=== PATIENT | male | born 1955 | race Caucasian/White ===

== ENCOUNTER 2018-05-14 07:32 | Observation (INO) | payer BC, OTHER ==
[~2018-05-14] VITALS: Ht 182.9 cm; Wt 106.4 kg
[2018-05-14] VITALS (11 sets, daily range): BP systolic 124–156; BP diastolic 82–100
--- NOTE | ~2018-05-14 | D ---
[facility] [place] [address] DISCHARGE SUMMARY Name: KELSEY AVITIA Room #: 210-P [facility] M.R.#: [id number] Admission: 05/14/18 ������������������ Attend Phys: Rene Moscoso MD, Discharge: ������������������ Date of : 57 Report #: [id number] THIS REPORT FOR: //name// CC: FAM unknown Rene Ward MD DATE OF SERVICE: 05/15/2018 SUBJECTIVE: This is a 62-year-old male who is admitted for cardiac catheterization after being evaluated in the office for what appeared to be possible prior inferior infarct of limited nature and some questionable anginal symptoms. Subsequently taken to the Catheterization Lab. The left main, LAD, circumflex were mildly diseased. The dominant right coronary artery had high grade subtotal proximal lesion. It appears that this may have been open and closed, but it was patent; however, closed even with the placement of a wire prior to the balloon angioplasty. This was then successfully stented with a 2.75 x 18 [place] Resolute drug-eluting stent. This was postdilated to 3.0 mm. He tolerated this well. Effient (prasugrel load) with aspirin for dual antiplatelet therapy to be continued. The amlodipine will be 5 mg, losartan will be 25 mg and metoprolol 25 mg are discharge medications with the full aspirin for 1 month, decreasing to a baby aspirin after 30 days and continuing prasugrel, so dual antiplatelet therapy at least 1 year. DISCHARGE DIAGNOSES: 1. Coronary artery disease, successful PTCA stent. 2. Mild ischemic cardiomyopathy, which essentially has resolved. There is very small area of inferior basilar hypokinesis, ejection fraction 55%. 3. Hypertension. 4. Hypercholesterolemia. 5. Strong family history of premature coronary artery disease. 6. Tobacco use. Tobacco cessation strongly recommended. He is planning on stopping. He has been cutting down significantly. Followup is scheduled in 3 months in our office. No MRI or dental work for 3 months. No lifting or tub or Jacuzzi for 1 week. Thank you for asking me to assist in the care of this patient. ��������������������������������������������� ���������������������������������������� By: ��������������������������������������������� [id number] 0909 Rene Moscoso MD, FACC /nt
[2018-05-14 08:01] LABS: HEMATOCRIT 45.7 % (42.0-52.0); HEMOGLOBIN 15.6 gm/dL (14.0-18.0); MCH 32.7 pg (26.0-34.0); MCV 96.2 fL (80.0-100.0); RBC 4.75 mil/uL (4.50-6.00); RDW 14.1 % (10.5-14.5)
[2018-05-14] MEDS ORDERED: ZYLOPRIM300 MG PO (08:02)
[2018-05-14] MEDS ORDERED: ASPIR 8181 MG PO (08:02)
[2018-05-14] MEDS ORDERED: COZAAR 25 MG TA25 M1 PO (08:03)
[2018-05-14] MEDS ORDERED: AMLODIPINE BESY10 MG PO (08:03)
[2018-05-14] MEDS ORDERED: METFORMIN HCL500 MG PO (08:04)
[2018-05-14] MEDS ORDERED: CRESTOR20 MG PO (08:05)
[2018-05-14 08:16] LABS: CALCIUM 8.9 mg/dL (8.5-10.1); CREATININE 1.1 mg/dL (0.7-1.3); POTASSIUM 4.4 mmol/L (3.5-5.1)
--- NOTE | 2018-05-14 11:17 | NUR ---
PT ADMITTED FROM [facility] POST STENT PLACEMENT. ALERT AND ORIENTED X4. DENIES PAIN AND SOA. PT PLACED ON TELE AND VITAL MONITORING PER POST CATH PROTOCOL. VSS. RIGHT GROIN POST CATH SITE C/D/I. FAMILY AT BEDSIDE. PT DOES NOT WANT TO EAT AT THIS TIME. ADMISSION EDUCATION COMPLETED. POST CATH INSTRUCTIONS GIVEN. PT DENIES QUESTIONS OR CONCERNS REGARDING THE FOREMENTIONED OR POC.
--- NOTE | 2018-05-14 17:34 | NUR ---
PT COMPLETED POST CATH PROTOCOL WITHOUT ISSUE. BP BECAME SLIGHTLY ELEVATED. CV WRAPPER OFF GAVE ORDERS TO GIVE ROUTINE BP MEDS. RIGHT GROIN POST CATH SITE C/D/I. PT GAIT ASSESSED AFTER ORDERED BEDREST COMPLETED AND HAS STEADY GAIT. AT BEDSIDE. ORDERS FOR ACCUCHECK AND SSI PUT IN AND HYPERGLYCEMIA WILL BE TREATED INDICATED. NO DISTRESS NOTED.
--- NOTE | 2018-05-14 18:42 | CATHLAB ---
[facility] [employer] [place] [address] INVASIVE PROCEDURE REPORT Name: KELSEY AVITIA Room #: 210-P [facility]#: [id number] ������������� Admission: 05/14/18 ������������� Attend Phys: Rene Moscoso, Discharge: ��� ������������� ��� Date of : 57 Date of Service: 05/14/18 1841 �� Report #: [id number] �������� ��������������������������������������������[id number] THIS REPORT FOR: //name// APPROVED REPORT Study performed: 05/14/2018 08:52:46 Patient Details Patient Status: Out-Patient Room #: The patient is a 62 year-old male Event Personnel Rene Moscoso Engravings Polisher, Po Bermudez RN, Becky Power RTR, Cami Avila David Monitor, Shima Duque RN Monitor Procedures Performed Left Heart Cath w/or w/o Coronaries [id number] [facility] Aortogram Abdominal Peripheral Angio 6[address] w/wo Plasty Single RCA [id number] Indication Chest pain Procedure Narrative The Right Groin^ was infiltrated with 1% Lidocaine subcutaneous anesthesia. A PINNACLE 6FR Sheath #[id number] sheath was inserted into the RFA^. Coronary angiography was performed using coronary diagnostic catheters. The right coronary system was accessed and visualized with a 6FR 3DRC #[id number] catheter. The left coronary system was accessed and visualized with a JL4 catheter. The left ventricle was accessed and visualized with a PIGTAIL catheter. Left ventriculogram was performed in 30 degree projection. An aortogram of the abdominal aorta was performed. Closure device was deployed with a 6 Fr MYNXGRIP 6/7F #[id number]. There was no hematoma. Intraoperative Conscious Sedation Sedation start time: 9.23 Case end Time: 10.28 Fentanyl 100 mcg Versed 2 mg Fluoro Time: 949 minutes Dose: DAP 09843 cGycm2 1305 mGy Contrast Type and Amount: Omnipaque 175 ml [facility] [employer] [place] [address] INVASIVE PROCEDURE REPORT Name: KELSEY AVITIA Room #: 210-P [facility] IN ..#: [id number] ������������� Admission: 05/14/18 ������������� Attend Phys: Rene Moscoso, Discharge: ��� ������������� ��� Date of : 57 Date of Service: 05/14/18 1841 �� Report #: [id number] �������� ��������������������������������������������[id number] Hemodynamics The aortic pressure is 140/80 mmHg with a mean of 90 mmHg. The left ventricular pressure is 129/17 mmHg with a mean of mmHg. The left ventricular end diastolic pressure is 29 mmHg. PCI Technique Lesion Percutaneous coronary intervention was performed on the mid right coronary artery. A LAUNCHER 6FR GUIDO #[id number] Guide Catheter was used to engage the ostium. A Luge Wire .014 x 182CM #[id number] Interventional Guidewire was used to cross the lesion. BALLOON DILATION A Balloon catheter Sprinter OTW 2.5 x 15 #[id number] was inserted and inflated up to 4.00atm for 7seconds. Additional Inflation: 3.00atm for 14seconds. 2.25X20 - 18/20 STENT DEPLOYMENT A drug-eluting stent RESOLUTE LEONCIO OTW 2.75 X 18 #[id number] was inserted and inflated up to 16.00atm for 26seconds. Additional Inflation: 20.00atm for 33seconds. Conclusion #1 successful PTCA stent of a subtotaled right coronary artery stenosis filling a large dominant distal system. Placement of a 2.75 x 18 [place] resolute drug-eluting stent postdilated 3.0 mm CARMEN grade 3 flow #2 left main large free of disease giving rise to LAD and circumflex #3 the LAD well preserved extends around the apex with no occlusive disease #4 small nondominant circumflex OM with no occlusive disease #5 normal left ventricular size with subtle inferior basilar hypo-EF is normal 55-60% #6 abdominal aortogram no evidence of aneurysm single renal arteries are widely patent Remissions and plan: Continue aggressive risk factor modification. Follow post stent protocol. Dual antiplatelet therapy times at least one year. Transfer to CCU in stable condition ��������������������������������������������� <ELECTRONICALLY SIGNED> ���������������������������������������� By: Rene Moscoso MD, FACC ��������������������������������������������� 05/14/181840 40 40 Rene Moscoso MD, FACC /INF
[2018-05-15 00:18] VITALS: BP 139/95
--- NOTE | 2018-05-15 03:10 | NUR ---
ASSUMED CARE 1900. VSS. ASSESSMENT CHARTED. PT DENIES ANY CP OR CONCERNS. UP TO BATHROOM AD EVAN. R GROIN SITE CDI, NO HEMATOMA OR BRUIT. PLAN FOR LABS THIS AM AND PT HOPEFUL TO D/C TODAY. WILL CONTINUE TO MONITOR AND WITH POC.
[2018-05-15 03:48] LABS: CALCIUM 8.2 mg/dL (8.5-10.1); CREATININE 1.1 mg/dL (0.7-1.3); POTASSIUM 4.2 mmol/L (3.5-5.1); TROPONIN-I 0.06 ng/mL (<0.06)
[2018-05-15 04:13] LABS: HEMATOCRIT 41.2 % (42.0-52.0); HEMOGLOBIN 14.3 gm/dL (14.0-18.0); MCHC 34.6 g/dL (28.0-37.0); MCV 95.3 fL (80.0-100.0); RBC 4.32 mil/uL (4.50-6.00); RDW 13.7 % (10.5-14.5)
[2018-05-15 04:52] VITALS: BP 131/85
[2018-05-15] MEDS ORDERED: BYSTOLIC 5 MG5 M1 PO (08:09)
[2018-05-15] MEDS ORDERED: EFFIENT10 MG PO (08:09)
[2018-05-15] MEDS ORDERED: ASPIRIN325 PO (08:09)
[2018-05-15] MEDS ORDERED: AMLODIPINE BESYL5 M1 PO (08:09)
[2018-05-15 08:43] VITALS: BP 131/85
[2018-05-15 09:00] VITALS: BP 135/92
[2018-05-15 09:01] VITALS: BP 135/92
--- NOTE | 2018-05-15 09:36 | NUR ---
PT CARE ASSUMED APPROX 0700. PT ALERT AND ORIENTED X4. DENIES PAIN AND SOA. VSS. RIGHT GROIN POST CATH SITE C/D/I. PT EDUCATED ON DISCHARGE INSTRUCTIONS BY CV PULLMAN CONDUCTOR, CV DR AND CV REHAB. DISCHARGE PAPERWORK ALSO REVIEWED BY DISCHARGE NURSE. PT DENIES QUESTIONS OR CONCERNS REGARDING NEW MEDS, SCRIPTS, POST CATH ACTIVITY AND RESTRICTIONS, SITE CARE,F/U APPTS, DIET AND GENERAL POST HOSPITAL CARES. IV OUT, TELE BOX OFF. FAMILY TO PROVIDE TRANSPORTATION HOME. NURSING TO ESCORT PT OUT AT THIS TIME.
--- NOTE | 2018-05-15 17:13 | EKG ---
[address] [address] ELECTROCARDIOGRAM REPORT Name: KELSEY AVITIA Room #: 210-[facility] M.R.#: [id number] ������������������ Admission: 05/14/18 ������������������ Attend Phys: Rene Moscoso MD, Discharge: 05/15/18 ������������������ Date of : 57 Report #: [id number] ����������������������������������������������������������������� [id number] THIS REPORT FOR: //name// [facility] Test Date: 2018-05-15 Test Time: 07:03:06 Pat Name: KELSEY AVITIA Department: Room: 210 Gender: M Parking Patroller: : 1955 Requested By: Antonia Quintero Order Number: [id number] MD: Derrick Dutta Measurements Intervals [place] Rate: 59 P: 38 SC: 162 QRS: 15 QRSD: 105 T: 11 QT: 447 QTc: 443 Interpretive Statements Sinus bradycardia Otherwise normal tracing No previous ECG available for comparison Electronically Signed On 05-15-2018 17:13:04 CDT by Derrick Dutta [email or web address] ��������������������������������������������� <ELECTRONICALLY SIGNED> ���������������������������������������� By: Derrick Dutta MD, [facility] ��������������������������������������������� 05/15/18 1713 0703 2 Derrick Dutta MD, FACC /EPI
== END 2018-05-15 09:30 | disposition home or self-care (01) ==
LOC: CATH 07:32 → 2N 10:41
PROVIDERS: Nurse Practitioner Gerontology; ADMIT Internal Medicine Cardiovascular Disease
DX: I25.10 Atherosclerotic heart disease of native coronary artery without angina pectoris (principal); I25.5 Ischemic cardiomyopathy; I10 Essential (primary) hypertension; E78.00 Pure hypercholesterolemia, unspecified; F17.200 Nicotine dependence, unspecified, uncomplicated

== ENCOUNTER → 2018-06-18 | Outpatient (CLI) | payer BC, OTHER ==
[~2018-06-18] MED LIST: AMLODIPINE BESY10 MG PO; AMLODIPINE BESYL5 M1 PO; ASPIR 8181 MG PO; ASPIRIN325 PO; BYSTOLIC 5 MG5 M1 PO; COZAAR 25 MG TA25 M1 PO; CRESTOR20 MG PO; EFFIENT10 MG PO; METFORMIN HCL500 MG PO; ZYLOPRIM300 MG PO
== END ==
LOC: ULTRA 12:42
DX: M79.89 Other specified soft tissue disorders (principal); M79.602 Pain in left arm